=== PATIENT | male | born 1965 | race Hispanic/Latino ===

== ENCOUNTER 2018-04-04 07:32 | Emergency (ER) | payer SELFPAY ==
[~2018-04-04] VITALS: Ht 162.6 cm; Wt 75.3 kg
[~2018-04-04 07:32] MED LIST: AMLODIPINE BESYL5 MG PO; GLIMEPIRIDE2 MG PO; LEVAQUIN500 MG PO; LISINOPRIL-HCT1 EAC1; LISINOPRIL10 MG PO; TYLENOL WITH C1 EACH PO; ULTRAM50 MG PO; ZESTORETIC 20-1 EAC1 PO
[2018-04-04] MEDS ORDERED: SODIUM CHLORIDE 0.9% 1000ML 1,000 ML IV STA (07:41)
[2018-04-04] MEDS ORDERED: PANTOPRAZOLE 40 MG 10ML VIAL IV STA (07:41)
[2018-04-04] MEDS ORDERED: ONDANSETRON HCL INJ 2MG/ML 2ML 2 MG/ML VIAL IV STA (07:41)
[2018-04-04] MEDS ORDERED: MORPHINE SULFATE INJ 4 MG/ML INJ 1ML IV ONE (07:45)
[2018-04-04] MEDS ORDERED: DIATRIZOATE MEGL/DIATRIZOA SOD 30 ML BTL PO ONE (07:50)
--- NOTE | 2018-04-04 07:57 | NUR ---
xray at bedside for cxr.
[2018-04-04] MEDS ORDERED: PIPER-TAZ 3.375 GM 50 ML IV SCH (08:00)
[2018-04-04] MEDS ORDERED: METRONIDAZOLE 500MG/NS 100ML 100 ML IV SCH (08:00)
[2018-04-04 08:02] LABS: BASOPHILS % 0.4 % (0.0-1.0); EOSINOPHILS # (AUTO) 0.1 (0.0-0.4); EOSINOPHILS % 1.5 % (0.0-6.0); HEMATOCRIT 45.6 % (38.2-49.6); HEMOGLOBIN 15.7 g/dL (14.0-18.0); LYMPHOCYTES # (AUTO) 1.2 (1.0-3.2); LYMPHOCYTES % 14.3 % (18.0-39.1); MEAN CORPUSCULAR HEMOGLOBIN 30.1 pg (28-32); MEAN CORPUSCULAR HGB CONC 34.4 g/dL (31-35); MEAN CORPUSCULAR VOLUME 87.4 fL (81-99); MONOCYTES # (AUTO) 0.6 (0.2-0.8); MONOCYTES % 7.7 % (4.4-11.3); NEUTROPHILS # (AUTO) 6.1 (2.1-6.9); NEUTROPHILS % 75.9 % (38.7-80.0); PLATELET COUNT 218 x10e3/uL (140-360); RED BLOOD COUNT 5.22 x10e6/uL (4.3-5.7); RED CELL DISTRIBUTION WIDTH 11.7 % (11.7-14.4)
[2018-04-04 08:07] LABS: CLARITY,URINE CLEAR (CLEAR); COLOR,URINE YELLOW (YELLOW)
[2018-04-04 08:08] LABS: BILIRUBIN,URINE NEGATIVE (NEGATIVE); KETONES,URINE NEGATIVE (NEGATIVE); LEUKOCYTE ESTERASE ,URINE NEGATIVE (NEGATIVE); NITRITE,URINE NEGATIVE (NEGATIVE); PROTEIN,URINE DIPSTICK NEGATIVE (NEGATIVE); URINE UROBILINOGEN 0.2 mg/dL (0.2 - 1)
[2018-04-04 08:13] LABS: BACTERIA,URINE FEW /HPF; EPITHELIAL CELLS,URINE FEW /LPF; RBC,URINE 0-5 /HPF (0-5); WBC,URINE (MAN) 0-5 /HPF (0-5)
[2018-04-04 08:16] LABS: INR 0.95; PROTHROMBIN TIME 13.5 seconds (11.9-14.5)
[2018-04-04 08:17] LABS: PARTIAL THROMBOPLASTIN TIME 30.1 seconds (23.8-35.5)
[2018-04-04 08:21] LABS: ALANINE AMINOTRANSFERASE 36 IU/L (0-55); ALBUMIN/GLOBULIN RATIO 1.4 (0.8-2.0); ALKALINE PHOSPHATASE 70 IU/L (40-150); ANION GAP 14.5 mmol/L (8-16); BLOOD UREA NITROGEN 12 mg/dL (7-26); BUN/CREATININE RATIO 12 (6-25); CALCIUM 9.6 mg/dL (8.4-10.2); CARBON DIOXIDE 30 mmol/L (22-29); CHLORIDE 99 mmol/L (98-107); CREATINE KINASE 253 IU/L (30-200); CREATININE, SERUM 0.97 mg/dL (0.72-1.25); EST GLOMERULAR FILTRATION RATE > 60 ML/MIN (60-); GLUCOSE 144 mg/dL (74-118); LIPASE 57 U/L (8-78); MAGNESIUM 2.2 MG/DL (1.3-2.1); POTASSIUM 3.5 mmol/L (3.5-5.1); SODIUM 140 mmol/L (136-145)
--- NOTE | 2018-04-04 10:44 | NUR ---
PATIENT LAYING IN BED WITH EYES CLOSED. SKIN WARM AND DRY. RESP EVEN AND UNLABORED. NO SIGNS OF ACUTE DISTRESS NOTED AT THIS TIME.
--- NOTE | 2018-04-04 10:59 | Diagnostic Imaging Report ---
EXAM: CT Abdomen and Pelvis WITH contrast INDICATION: Pain COMPARISON: None. TECHNIQUE: Abdomen and Pelvis was scanned utilizing a multidetector helical scanner after administration of IV contrast. Coronal and sagittal reformations were obtained. IV CONTRAST: COMPLICATIONS: None RADIATION DOSE: Total DLP:384 mGy*cm Estimated effective dose: (DLP x 0.015 x size factor) mSv CTDIvol has been reviewed. It is below the limits set by the Radiation Protocol Committee (RPC). Appropriate CT dose reduction techniques were utilized. FINDINGS: Abdomen: Lung Bases: No acute findings. Solid Organs: Mild hepatic steatosis. Liver, adrenals, kidneys, spleen, and pancreas unremarkable. Upper GI Tract: Gastric decompression limits evaluation. No small bowel obstructive changes. Vascularity: No aortic aneurysm. Lymph Nodes: Scattered small mesenteric lymph nodes, not enlarged by size criteria. Other: None. Pelvis: Bladder: Decompressed, precluding adequate evaluation. Other: None. Colon: Postsurgical changes in the rectum likely LAR. Correlation with history. Trace surrounding stranding. No distinct pelvic adenopathy. Bones: No acute findings. Presumed bone island left ischium coronal image 64. IMPRESSION: 1. Postsurgical changes in the rectum, presumably LAR. Minimal surrounding stranding could represent an infectious/inflammatory colitis. Gastroenterology follow-up for consideration of direct visualization recommended. 2. Mild hepatic steatosis. 3. Mild thickening distal esophageal wall commonly seen in the setting of reflux. Signed by: Dr. Brayan Starkey MD on 04/04/2018 10:56 AM
--- NOTE | 2018-04-04 10:59 | Diagnostic Imaging Report ---
EXAM: XR CHEST 1 VIEW DATE: 04/04/2018 7:41 AM INDICATION: Nausea vomiting COMPARISON: None FINDINGS: Lines and Tubes: None Heart and Mediastinum: No acute cardiomediastinal findings. Lungs and Pleura: No significant pleural effusion, pneumothorax, or focal consolidation. Bones and Soft Tissues: No acute findings. IMPRESSION: 1. No acute cardiopulmonary findings. Signed by: Dr. Brayan Starkey MD on 04/04/2018 10:56 AM
[2018-04-04] MEDS ORDERED: SODIUM CHLORIDE 0.9% 50ML 50 ML ONE (11:39)
[2018-04-04] MEDS ORDERED: IOPAMIDOL 370 MG/ML 200 ML INFUS..BTL INJ ONE (11:39)
== END 2018-04-04 11:30 | disposition home or self-care (01) ==
LOC: ER 07:32
DX: R10.32 Left lower quadrant pain (principal); R10.12 Left upper quadrant pain; R11.2 Nausea with vomiting, unspecified; R19.7 Diarrhea, unspecified; I10 Essential (primary) hypertension; E11.9 Type 2 diabetes mellitus without complications; E78.5 Hyperlipidemia, unspecified; Z98.0 Intestinal bypass and anastomosis status
CPT/HCPCS: 36415; 71045; 74177; 80053; 81001; 82550; 82553; 83605; 83690; 83735; 84484; 85025; 85610; 85730; 87086; 93005; 99284; J2270; J2405; J2543; J7030; Q9967

== ENCOUNTER 2019-01-29 14:51 | Emergency (ER) | payer BC ==
[~2019-01-29] VITALS: Ht 162.6 cm; Wt 75.3 kg
--- OUTSIDE RECORDS SUMMARY | 2019-01-29 14:56 | XMS REPORT ---
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 Allergies, Adverse Reactions, Alerts Allergy Name Allergy Type Status Severity Reaction(s) Onset Date Inactive Date Treating Clinician Comments No Known Allergies DA Active U 2018-03-30 00:00:00 Medications This patient has no known medications. Results Test Description Test Time Test Comments Text Results Atomic Results Result Comments CHEST SINGLE (PORTABLE) 2018-04-04 10:56:[address] [address] Patient Name: VEE HERZOG MR #: [id number] : 1965 Age/Sex: 52/M Req #: [id number] Adm Physician: Ordered by: MONAE LOVE MD Report #: [id number] Location: ER Room/Bed: Procedure: [id number] DX/CHEST SINGLE (PORTABLE) Exam Date: 04/04/18 Exam Time: 0800 REPORT STATUS: Signed EXAM: XR CHEST 1 VIEW DATE: 04/04/2018 7:41 AM INDICATION: Nausea vomiting COMPARISON: None FINDINGS: Lines and Tubes: None Heart and Mediastinum: No acute cardiomediastinal findings. Lungs and Pleura: No significant pleural effusion, pneumothorax, or focal consolidation. Bones and Soft Tissues: No acute findings. IMPRESSION: 1. No acute cardiopulmonary findings. Signed by: Dr. Brayan Starkey MD on 04/04/2018 10:56 AM Dictated By: BRAYAN STARKEY MD 105 Transcribed By: REID on 04/04/18 105 COPY TO: MONAE LOVE MD CT ABDOMEN/PELVIS W 2018-04-04 10:53:00 [place] [address] Patient Name: VEE HERZOG MR #: [id number] : 1965 Age/Sex: 52/M Req #: [id number] Adm Physician: Ordered by: MONAE LOVE MD Report #: [id number] Location: ER Room/Bed: Procedure: [id number] CT/CT ABDOMEN/PELVIS W Exam Date: 04/04/18 Exam Time: 09 REPORT STATUS: Signed EXAM: CT Abdomen and Pelvis WITH contrast HARVEY CATION: Pain COMPARISON: None. TECHNIQUE: Abdomen and Pelvis was scanned utilizing a multidetector helical scanner after administration of IV contrast. Coronal and sagittal reformations were obtained. IV CONTRAST: COMPLICATIONS: None RADIATION DOSE: Total DLP:384 mGy*cm Estimated effective dose: (DLP x 0.015 x size factor) mSv CTDIvol has been reviewed. It is below the limits set by the Radiation Protocol Committee (RPC). Appropriate CT dose reduction techniques were utilized. FINDINGS: Abdomen: Lung Bases: No acute findings. Solid Organs: Mild hepatic steatosis. Liver, adrenals, kidneys, spleen, and pancreas unremarkable. Upper GI Tract: Gastric decompression limits evaluation. No small bowel obstructive changes. Vascularity: No aortic aneurysm. Lymph Nodes: Scattered small mesenteric lymph nodes, not enlarged by size criteria. Other: None. Pelvis: Bladder: Decompressed, precluding adequate evaluation. Other: None. Colon: Postsurgical changes in the rectum likely LAR. Correlation with history. Trace surrounding stranding. No distinct pelvic adenopathy. Bones: No acute findings. Presumed bone island left ischium coronal image 64. IMPRESSION: 1. Postsurgical changes in the rectum, presumably LAR. Minimal surrounding stranding could represent an infectious/inflammatory colitis. Gastroenterology follow-up for consideration of direct visualization recommended. 2. Mild hepatic steatosis. 3. Mild thickening distal esophageal wall commonly seen in the setting of reflux. Signed by: Dr. Brayan Starkey MD on 04/04/2018 10:56 AM Dictated By: BRAYAN STARKEY MD [id number] Transcribed By: REID on 04/04/18 1056 COPY TO: MONAE LOVE MD URINALYSIS COMPLETE 2018-03-30 18:36:00 UA COLOR (test code=COLU) LIGHT YELLOW YELLOW UA APPEARANCE (test code=APPU) CLEAR CLEAR UA GLUCOSE DIPSTICK (test code=DGLUU) 150 (1+) mg/dL NEGATIVE UA BILIRUBIN DIPSTICK (test code=BILU) NEGATIVE mg/dL NEGATIVE UA KETONE DIPSTICK (test code=KETU) Negative mg/dL NEGATIVE UA SPECIFIC GRAVITY (test code=SGU) 1.009 1.001-1.035 UA BLOOD DIPSTICK (test code=MERCEDES) 1+ (Small) NEGATIVE UA PH DIPSTICK (test code=SINDY) 6.0 5.0-8.0 UA PROTEIN DIPSTICK (test code=PROU) 30 (1+) mg/dL NEGATIVE UA UROBILINIOGEN DIPSTICK (test code=URO) mg/dL 0.0-0.2 UA NITRITE DIPSTICK (test code=SANIYA) NEGATIVE NEGATIVE UA LEUKOCYTE ESTERASE W REFLEX (test code=LEUUR) NEGATIVE NEGATIVE UA WBC (test code=WBCU) 0-5 #/HPF 0-5 UA RBC (test code=RBCU) 0-2 #/HPF 0-5 UA EPITHELIAL CELLS (test code=EPIU) FEW per HPF FEW Urine Source? Clean CatchURINALYSIS [id number] 18:36:00* Test Item Value Reference Range Comments UA COLOR (test code=COLU) LIGHT YELLOW YELLOW UA APPEARANCE (test code=APPU) CLEAR CLEAR UA GLUCOSE DIPSTICK (test code=DGLUU) 150 (1+) mg/dL NEGATIVE UA BILIRUBIN DIPSTICK (test code=BILU) NEGATIVE mg/dL NEGATIVE UA KETONE DIPSTICK (test code=KETU) Negative mg/dL NEGATIVE UA SPECIFIC GRAVITY (test code=SGU) 1.009 1.001-1.035 UA BLOOD DIPSTICK (test code=MERCEDES) 1+ (Small) NEGATIVE UA PH DIPSTICK (test code=SINDY) 6.0 5.0-8.0 UA PROTEIN DIPSTICK (test code=PROU) 30 (1+) mg/dL NEGATIVE UA UROBILINIOGEN DIPSTICK (test code=URO) 1.0-2.0 (1+) mg/dL NEGATIVE UA NITRITE DIPSTICK (test code=SANIYA) NEGATIVE NEGATIVE UA LEUKOCYTE ESTERASE W REFLEX (test code=LEUUR) NEGATIVE NEGATIVE UA WBC (test code=WBCU) 0-5 #/HPF 0-5 UA RBC (test code=RBCU) 0-2 #/HPF 0-5 UA EPITHELIAL CELLS (test code=EPIU) FEW per HPF FEW UA BACTERIA (test code=BACU) FEW #/HPF NONE UA HYALINE CAST (test code=HYALU) 6-10 #/LPF 0-5 UA MUCUS (test code=MUCU) FEW #/LPF FEW Urine Source? Clean CatchURINALYSIS [id number] 18:35:00* Test Item Value Reference Range Comments UA COLOR (test code=COLU) LIGHT YELLOW YELLOW UA APPEARANCE (test code=APPU) CLEAR CLEAR UA GLUCOSE DIPSTICK (test code=DGLUU) 150 (1+) mg/dL NEGATIVE UA BILIRUBIN DIPSTICK (test code=BILU) NEGATIVE mg/dL NEGATIVE UA KETONE DIPSTICK (test code=KETU) Negative mg/dL NEGATIVE UA SPECIFIC GRAVITY (test code=SGU) 1.009 1.001-1.035 UA BLOOD DIPSTICK (test code=MERCEDES) 1+ (Small) NEGATIVE UA PH DIPSTICK (test code=SINDY) 6.0 5.0-8.0 UA PROTEIN DIPSTICK (test code=PROU) 30 (1+) mg/dL NEGATIVE UA UROBILINIOGEN DIPSTICK (test code=URO) mg/dL 0.0-0.2 UA NITRITE DIPSTICK (test code=SANIYA) NEGATIVE NEGATIVE UA LEUKOCYTE ESTERASE W REFLEX (test code=LEUUR) NEGATIVE NEGATIVE UA WBC (test code=WBCU) per HPF 0-5 Urine Source? Clean CatchBASIC METABOLIC [id number] 17:56:00* Test Item Value Reference Range Comments SODIUM (test code=NA) 132 mmol/L 136-145 POTASSIUM (test code=K) 3.0 mmol/L 3.5-5.1 CHLORIDE (test code=CL) 95.0 mmol/L 98-107 CARBON DIOXIDE (test code=CO2) 26.0 mmol/L 21-32 ANION GAP (test code=GAP) 14.0 10-20 GLUCOSE (test code=GLU) 214 mg/dL 74-106 BLOOD UREA NITROGEN (test code=BUN) 9 mg/dL 7-18 GLOMERULAR FILTRATION RATE (test code=GFR) > 60 mL/min >=60 Estimated GFR by using Modified MDRD formula.Chronic kidney disease is defined as either kidney damageor GFR <60 mL/min/1.73 m2 for >3 months. CREATININE (test code=CREAT) 0.90 mg/dL 0.7-1.3 BUN/CREATININE RATIO (test code=BUN/CREA) 10.1 10-20 CALCIUM (test code=CA) 8.7 mg/dL 8.5-10.1 HEPATIC FUNCTION [id number] 17:56:00* Test Item Value Reference Range Comments TOTAL PROTEIN (test code=PROT) 7.9 gram/dL 6.4-8.2 ALBUMIN (test code=ALB) 3.7 g/dL 3.4-5.0 GLOBULIN (test code=GLOB) 4.2 gram/dL 2.7-4.2 ALBUMIN/GLOBULIN RATIO (test code=A/G) 0.9 0.75-1.50 BILIRUBIN TOTAL (test code=BILT) 1.20 mg/dL 0.0-1.0 BILIRUBIN DIRECT (test code=BILD) 0.20 mg/dL 0.0-0.20 SGOT/AST (test code=AST) 21 IUnit/L 15-37 SGPT/ALT (test code=ALT) 39 IUnit/L 12-78 ALKALINE PHOSPHATASE TOTAL (test code=ALKP) 87 IUnit/L 45-117 Note change in reference range due to change in reagent. [id number] 17:56:00* Test Item Value Reference Range Comments LIPASE (test code=LIP) 342 U/L 73.0-393.0 [id number] 17:56:00* Test Item Value Reference Range Comments TROPONIN-I (test code=TROPI) <0.015 ng/mL 0-0.045 BASIC METABOLIC [id number] 17:44:00* Test Item Value Reference Range Comments SODIUM (test code=NA) 132 mmol/L 136-145 POTASSIUM (test code=K) 3.0 mmol/L 3.5-5.1 CHLORIDE (test code=CL) 95.0 mmol/L 98-107 CARBON DIOXIDE (test code=CO2) mmol/L 21-32 ANION GAP (test code=GAP) 10-20 GLUCOSE (test code=GLU) mg/dL 74-106 BLOOD UREA NITROGEN (test code=BUN) mg/dL 7-18 GLOMERULAR FILTRATION RATE (test code=GFR) mL/min >=60 CREATININE (test code=CREAT) mg/dL 0.7-1.3 BUN/CREATININE RATIO (test code=BUN/CREA) 10-20 CALCIUM (test code=CA) mg/dL 8.5-10.1 HEPATIC FUNCTION [id number] 17:44:00* Test Item Value Reference Range Comments TOTAL PROTEIN (test code=PROT) gram/dL 6.4-8.2 ALBUMIN (test code=ALB) g/dL 3.4-5.0 GLOBULIN (test code=GLOB) gram/dL 2.7-4.2 ALBUMIN/GLOBULIN RATIO (test code=A/G) 0.75-1.50 BILIRUBIN TOTAL (test code=BILT) mg/dL 0.0-1.0 BILIRUBIN DIRECT (test code=BILD) mg/dL 0.0-0.20 SGOT/AST (test code=AST) IUnit/L 15-37 SGPT/ALT (test code=ALT) IUnit/L 12-78 ALKALINE PHOSPHATASE TOTAL (test code=ALKP) IUnit/L 45-117 [id number] 17:44:00* Test Item Value Reference Range Comments LIPASE (test code=LIP) U/L 73.0-393.0 [id number] 17:44:00* Test Item Value Reference Range Comments TROPONIN-I (test code=TROPI) ng/mL 0-0.045 CBC W/O [id number] 17:39:00* Test Item Value Reference Range Comments WHITE BLOOD CELL (test code=WBC) 11.4 K/mm3 4.5-12.5 RED BLOOD CELL (test code=RBC) 5.38 mill/mm3 4.0-5.8 HEMOGLOBIN (test code=HGB) 16.0 gram/dL 13.0-17.5 HEMATOCRIT (test code=HCT) 47.0 % 42.0-52.0 MEAN CELL VOLUME (test code=MCV) 87.4 fL 80-98 MEAN CELL HGB (test code=MCH) 29.7 picogram 27.0-33.0 MEAN CELL HGB CONCETRATION (test code=MCHC) 34.0 gram/dL 33.0-36.0 RED CELL DISTRIBUTION WIDTH (test code=RDW) 11.4 % 11.6-16.2 PLATELET COUNT (test code=PLT) 266 K/mm3 150-450 MEAN PLATELET VOLUME (test code=MPV) 10.2 fL 6.7-11.0
[2019-01-29 16:20] LABS: BASOPHILS % 0.3 % (0.0-1.0); EOSINOPHILS # (AUTO) 0.1 (0.0-0.4); EOSINOPHILS % 0.6 % (0.0-6.0); HEMATOCRIT 41.7 % (38.2-49.6); LYMPHOCYTES # (AUTO) 1.6 (1.0-3.2); LYMPHOCYTES % 15.8 % (18.0-39.1); MEAN CORPUSCULAR HEMOGLOBIN 30.8 pg (28-32); MEAN CORPUSCULAR VOLUME 85.6 fL (81-99); MONOCYTES # (AUTO) 0.7 (0.2-0.8); MONOCYTES % 7.2 % (4.4-11.3); NEUTROPHILS # (AUTO) 7.5 (2.1-6.9); NEUTROPHILS % 75.8 % (38.7-80.0); PLATELET COUNT 200 x10e3/uL (140-360); RED BLOOD COUNT 4.87 x10e6/uL (4.3-5.7); RED CELL DISTRIBUTION WIDTH 11.9 % (11.7-14.4)
[2019-01-29 16:21] LABS: BILIRUBIN,URINE NEGATIVE (NEGATIVE); CLARITY,URINE SL CLOUDY (CLEAR); COLOR,URINE YELLOW (YELLOW); KETONES,URINE NEGATIVE (NEGATIVE); LEUKOCYTE ESTERASE ,URINE NEGATIVE (NEGATIVE); NITRITE,URINE NEGATIVE (NEGATIVE); PROTEIN,URINE DIPSTICK 1+ (NEGATIVE); URINE UROBILINOGEN 0.2 mg/dL (0.2 - 1)
[2019-01-29 16:36] LABS: RBC,URINE 0-5 /HPF (0-5)
[2019-01-29 16:41] LABS: ALANINE AMINOTRANSFERASE 33 IU/L (0-55); ALBUMIN 4.1 g/dL (3.5-5.0); ALBUMIN/GLOBULIN RATIO 1.2 (0.8-2.0); ALKALINE PHOSPHATASE 65 IU/L (40-150); ANION GAP 13.9 mmol/L (8-16); BLOOD UREA NITROGEN 20 mg/dL (7-26); BUN/CREATININE RATIO 19 (6-25); CALCIUM 9.4 mg/dL (8.4-10.2); CARBON DIOXIDE 32 mmol/L (22-29); CHLORIDE 96 mmol/L (98-107); CREATININE, SERUM 1.08 mg/dL (0.72-1.25); EST GLOMERULAR FILTRATION RATE > 60 ML/MIN (60-); GLUCOSE 69 mg/dL (74-118); SODIUM 139 mmol/L (136-145)
[2019-01-29 16:44] LABS: POTASSIUM 2.9 mmol/L (3.5-5.1)
[2019-01-29] MEDS ORDERED: ONDANSETRON HCL INJ 2MG/ML 2ML 2 MG/ML VIAL IV ONE (16:55)
[2019-01-29] MEDS ORDERED: FAMOTIDINE 20 MG/2 ML VIAL IV ONE (16:55)
[2019-01-29] MEDS ORDERED: POTASSIUM CHLORIDE 20 MEQ TAB CR PO ONE (16:55)
[2019-01-29] MEDS ORDERED: KCL 20MEQ/.9 SOD CHL 1,000 ML IV ONE (17:00)
[2019-01-29] MEDS ORDERED: METOCLOPRAMIDE HCL 10 MG/2ML VIAL IV ONE (18:15)
--- NOTE | 2019-01-29 19:52 | Diagnostic Imaging Report ---
EXAM: ABDOMEN 2 VIEW DATE: 01/29/2019 4:55 PM INDICATION: ^Abdominal pain, N/V/D ^[id number] ^1710 COMPARISON: None FINDINGS: 3 views of the abdomen were obtained supine and upright. There is a normal distribution of air in the small and large bowel. No evidence for pneumoperitoneum. No abnormal fluid levels. No specific abnormal soft tissue calcifications. Lung bases are clear. No acute bony abnormality. Degenerative changes are seen in the lumbar spine. IMPRESSION: No bowel dilatation or evidence for bowel obstruction. No pneumoperitoneum. Signed by: Dr. Hugo Alegria M.D. on 01/29/2019 7:49 PM
[2019-01-29] MEDS ORDERED: ZANTAC 7575 MG PO (20:35)
[2019-01-29 21:09] VITALS: BP 132/70
[2019-01-29] MEDS ORDERED: ONDANSETRON HCL 4 MG ORAL DISINTEGRATING TAB PO ONE (21:15)
[2019-01-29] MEDS ORDERED: ONDANSETRON HCL 4 MG ORAL DISINTEGRATING TAB ONE (21:22)
== END 2019-01-29 21:10 | disposition home or self-care (01) ==
LOC: ER 14:51
DX: R10.84 Generalized abdominal pain (principal); R11.2 Nausea with vomiting, unspecified; K52.9 Noninfective gastroenteritis and colitis, unspecified; K56.7 Ileus, unspecified; E87.6 Hypokalemia
CPT/HCPCS: 36415; 74019; 80053; 81001; 85025; 93005; 99284; J2405; J2765; Q0162

== ENCOUNTER 2019-07-12 18:21 | Observation (INO) | payer BC, OTHER ==
[~2019-07-12] VITALS: Ht 162.6 cm; Wt 78.6 kg
[~2019-07-12 18:21] MED LIST changes: +ZANTAC 7575 MG PO
--- NOTE | 2019-07-12 18:51 | Diagnostic Imaging Report ---
EXAMINATION: Head CT HISTORY: Alteration of consciousness, left-sided weakness, possible stroke COMPARISON: None. TECHNIQUE: Helical axial images of the head were obtained. Reformatted coronal and sagittal images from the axial data. Dose modulation, iterative reconstruction, and/or weight based adjustment of the mA/kV was utilized to reduce the radiation dose to as low as reasonably achievable. Image quality: Motion/streaking artifact limits the evaluation of the skull base and posterior cranial fossa. FINDINGS: Parenchyma: 1. Few scattered white matter hypodensities, most likely nonspecific chronic microvascular ischemic changes. Small age indeterminate, likely chronic lacunar infarct in the left parietal zhou radiata, right anterosuperior putamen (x2) and left medial thalamus. 2. No mass or hemorrhage. No CT evidence of acute territorial vascular insult. Extra-axial spaces:No abnormal density. No extra-axial fluid collections Brain volume: Normal for age. Ventricles: No hydrocephalus or displacement. Arteries: No density suggestive of thrombus. Dural sinuses: No abnormal density. Foramen magnum: No mass, Chiari malformation, or basilar invagination. Sella: No obvious mass. Paranasal/mastoid sinuses: Imaged portions unremarkable. Skull/Scalp: No lytic or blastic lesions. No fractures. IMPRESSION: 1. No acute intracranial hemorrhage or CT evidence of acute territorial cortical infarct. 2. Age indeterminate likely chronic small lacunar infarcts as detailed above. 3. Mild white matter chronic microvascular ischemic changes. Signed by: Dr. Justine Rodas M.D. on 07/12/2019 6:47 PM
[2019-07-12 18:54] LABS: BASOPHILS % 0.5 % (0.0-1.0); EOSINOPHILS # (AUTO) 0.1 (0.0-0.4); EOSINOPHILS % 1.5 % (0.0-6.0); HEMATOCRIT 39.2 % (38.2-49.6); HEMOGLOBIN 14.2 g/dL (14.0-18.0); LYMPHOCYTES # (AUTO) 1.5 (1.0-3.2); LYMPHOCYTES % 18.2 % (18.0-39.1); MEAN CORPUSCULAR HEMOGLOBIN 31.1 pg (28-32); MEAN CORPUSCULAR HGB CONC 36.2 g/dL (31-35); MONOCYTES # (AUTO) 0.6 (0.2-0.8); MONOCYTES % 6.8 % (4.4-11.3); NEUTROPHILS # (AUTO) 5.9 (2.1-6.9); NEUTROPHILS % 72.5 % (38.7-80.0); PLATELET COUNT 195 x10e3/uL (140-360); RED BLOOD COUNT 4.56 x10e6/uL (4.3-5.7); RED CELL DISTRIBUTION WIDTH 11.8 % (11.7-14.4)
[2019-07-12 19:02] LABS: INR 0.91; PARTIAL THROMBOPLASTIN TIME 27.9 seconds (23.8-35.5); PROTHROMBIN TIME 12.8 seconds (11.9-14.5)
[2019-07-12 19:09] LABS: ALANINE AMINOTRANSFERASE 29 IU/L (0-55); ALBUMIN 3.7 g/dL (3.5-5.0); ALBUMIN/GLOBULIN RATIO 1.2 (0.8-2.0); ALKALINE PHOSPHATASE 78 IU/L (40-150); ANION GAP 14.2 mmol/L (8-16); BLOOD UREA NITROGEN 23 mg/dL (7-26); BUN/CREATININE RATIO 22 (6-25); CALCIUM 9.7 mg/dL (8.4-10.2); CARBON DIOXIDE 26 mmol/L (22-29); CHLORIDE 103 mmol/L (98-107); CREATINE KINASE 357 IU/L (30-200); CREATININE, SERUM 1.03 mg/dL (0.72-1.25); EST GLOMERULAR FILTRATION RATE > 60 ML/MIN (60-); GLUCOSE 222 mg/dL (74-118); POTASSIUM 3.2 mmol/L (3.5-5.1); SODIUM 140 mmol/L (136-145)
[2019-07-12] MEDS ORDERED: ASPIRIN 81 MG CHEW TAB PO ONE ×2 (19:15→19:30)
[2019-07-12] MEDS ORDERED: ONDANSETRON HCL INJ 2MG/ML 2ML 2 MG/ML VIAL IV PRN (19:30)
--- NOTE | 2019-07-12 19:32 | Diagnostic Imaging Report ---
EXAMINATION: CHEST SINGLE (PORTABLE) COMPARISON: None INDICATION: Stroke like symptoms ^Y ^ERMD ORDER ^[id number] ^0 ^Y DISCUSSION: Frontal view of the chest obtained at 1917 hours. HEART AND MEDIASTINUM: The cardiomediastinal silhouette is unremarkable. LINES: None. LUNGS: The lungs are well inflated and clear. No pneumonia or pulmonary edema. PLEURA: No pleural effusion or pneumothorax. BONES AND SOFT TISSUES: No focal osseous lesion. The soft tissues are normal. IMPRESSION: No acute cardiopulmonary disease. Signed by: Dr. Irina Douglas MD on 07/12/2019 7:29 PM
[2019-07-12 19:40] LABS: CLARITY,URINE CLEAR (CLEAR); COLOR,URINE YELLOW (YELLOW); LEUKOCYTE ESTERASE ,URINE NEGATIVE (NEGATIVE); NITRITE,URINE NEGATIVE (NEGATIVE); PROTEIN,URINE DIPSTICK 1+ (NEGATIVE)
[2019-07-12 19:41] LABS: BILIRUBIN,URINE NEGATIVE (NEGATIVE); KETONES,URINE NEGATIVE (NEGATIVE); URINE UROBILINOGEN 1 mg/dL (0.2 - 1)
[2019-07-12] MEDS ORDERED: DEXTROSE 50% SYRINGE 50 ML IV PRN (19:45)
[2019-07-12 19:54] LABS: BACTERIA,URINE RARE /HPF; RBC,URINE 0-5 /HPF (0-5); WBC,URINE (MAN) 0-5 /HPF (0-5)
[2019-07-12 19:55] LABS: EPITHELIAL CELLS,URINE FEW /LPF
[2019-07-12 20:00] VITALS: BP 141/84
[2019-07-12] MEDS: INSULIN LISPRO 100 UNIT/1 ML 3ML VIAL SQ SCH (21:00)
--- NOTE | 2019-07-12 21:30 | NUR ---
PATIENT WAS BROUGHT FROM ER IN A WHEEL CHAIR.ASSESSMENT DONE.AAOX4.NO RESP.DISTRESS.NO PAIN VOICED.ORIENTED TO THE UNIT.BED LOCKED AND IN LOWEST POSITION.PHONE AND CALL LIGHT WITHIN REACH.INSTRUCTED TO CALL FOR ASSISTANCE NEEDED. PER THE REPORT FROM ER CAROTID DOPPLER & MRI TO BE DONE IN AM TOMORROW.STABLE CONDITION.
[2019-07-12 21:45] VITALS: BP 141/84
[2019-07-12 22:00] VITALS: BP 141/84
[2019-07-12] MEDS: SODIUM CHLORIDE 0.9% 1000ML 1,000 ML IV SCH (22:31)
[2019-07-13] VITALS (9 sets, daily range): BP systolic 133–164; BP diastolic 75–95
--- NOTE | 2019-07-13 03:32 | NUR ---
COVID-19 TEST DONE.RESULT PENDING.
[2019-07-13 05:53] LABS: BASOPHILS % 0.4 % (0.0-1.0); EOSINOPHILS # (AUTO) 0.2 (0.0-0.4); EOSINOPHILS % 2.5 % (0.0-6.0); HEMATOCRIT 40.4 % (38.2-49.6); HEMOGLOBIN 14.1 g/dL (14.0-18.0); LYMPHOCYTES # (AUTO) 1.6 (1.0-3.2); LYMPHOCYTES % 20.2 % (18.0-39.1); MEAN CORPUSCULAR HEMOGLOBIN 30.5 pg (28-32); MEAN CORPUSCULAR HGB CONC 34.9 g/dL (31-35); MEAN CORPUSCULAR VOLUME 87.4 fL (81-99); MONOCYTES # (AUTO) 0.6 (0.2-0.8); MONOCYTES % 7.5 % (4.4-11.3); NEUTROPHILS # (AUTO) 5.6 (2.1-6.9); NEUTROPHILS % 68.9 % (38.7-80.0); PLATELET COUNT 186 x10e3/uL (140-360); RED BLOOD COUNT 4.62 x10e6/uL (4.3-5.7)
[2019-07-13 06:22] LABS: CREATINE KINASE MB 8.3 ng/mL (0-5.0)
[2019-07-13 06:38] LABS: ANION GAP 10.8 mmol/L (8-16); BLOOD UREA NITROGEN 15 mg/dL (7-26); BUN/CREATININE RATIO 17 (6-25); CALCIUM 8.9 mg/dL (8.4-10.2); CARBON DIOXIDE 28 mmol/L (22-29); CHLORIDE 104 mmol/L (98-107); CREATININE, SERUM 0.89 mg/dL (0.72-1.25); EST GLOMERULAR FILTRATION RATE > 60 ML/MIN (60-); GLUCOSE 158 mg/dL (74-118); SODIUM 140 mmol/L (136-145)
--- NOTE | 2019-07-13 06:50 | NUR ---
LAB CRITICAL VALUE NOTIFIED TO
[2019-07-13 06:58] LABS: POTASSIUM 2.8 mmol/L (3.5-5.1)
--- NOTE | 2019-07-13 07:00 | NUR ---
Received bedside shift report from night nurse. Patient awake, denies pain at this time. Reoriented to call light and surroundings. No visible signs of distress noted at this time. Bed in low position, bed alarm on zone 2, call light within reach. Addendum: 07/13/19 at 1019 by SREEKANTH HIGGNIS RN ENTERED IN ERROR
--- NOTE | 2019-07-13 07:00 | NUR ---
Received bedside shift report from night nurse. Patient awake at this time, denies pain. No visible signs of distress noted. Call light within reach.
--- NOTE | 2019-07-13 07:15 | NUR ---
Bed side shift report given to oncoming Rn stable condition.received new orders.
[2019-07-13] MEDS: INSULIN LISPRO 100 UNIT/1 ML 3ML VIAL SQ SCH ×4 (07:30→20:34)
[2019-07-13] MEDS ORDERED: POTASSIUM CHLORIDE 20 MEQ TAB CR PO ONE ×2 (07:58→10:00)
[2019-07-13] MEDS ORDERED: ASPIRIN 81 MG ENTERIC COATED PO SCH (09:00)
[2019-07-13] MEDS: SODIUM CHLORIDE 0.9% 1000ML 1,000 ML IV SCH (09:46)
--- NOTE | 2019-07-13 09:47 | Diagnostic Imaging Report ---
EXAM: CHEST SINGLE (PORTABLE) DATE: 07/13/2019 5:20 AM INDICATION: Weakness COMPARISON: 07/12/2019 FINDINGS: The trachea is midline. The lungs are symmetrically expanded without evidence for large focal consolidation, pneumothorax, or significant pleural effusion. The cardiomediastinal silhouette is stable in appearance. No acute osseous abnormality is identified. The surrounding soft tissues are unremarkable. IMPRESSION: No acute cardiopulmonary process identified. Signed by: Dr. Rodger Duarte MD on 07/13/2019 9:44 AM
--- NOTE | 2019-07-13 11:54 | NUR ---
H&P 07/13/2019 Chief complaint: Weakness and impaired speech HPI: Mr. Ferraro is a 53-year-old gentleman with a past medical history of hypertension, diabetes mellitus type 2, hyperlipidemia, diverticulitis status post colostomy who presented to the emergency department complaining of 1 day of left-sided weakness, numbness, and slurred speech that resolved. The patient is a still able to walk with help. The patient denies head trauma, headache, dizziness, altered mental status, seizure, loss of consciousness, impaired swallowing, fever, chills, shortness of breath, palpitations, PND, nausea, vomiting, abdominal pain, diarrhea, melena, dysuria, frequency. Review of system: Constitutional: No fever, no chills. HEENT: Denies headache, no ear pain, no nosebleed, no sore throat. Cardiovascular: Denies chest pain, PND, swelling of the legs, palpitations or blackout spells. Respiratory: Denies cough, hemoptysis or shortness of breath. Gastrointestinal: Denies nausea, vomiting, diarrhea, hematemesis or melena. Genitourinary: Denies hematuria, frequency or dysuria. Neurologic: Denies convulsive disorders, no focal weakness, no ataxia. Psych: Denies anxiety or depression Skin: No rash. Hematological system: Denies bleeding, no petechia. Musculoskeletal: No significant deformity or swelling of the joints. Past medical history: Hypertension, diabetes mellitus type 2, hyperlipidemia, diverticulitis. Past surgical history: Colostomy on 12/2013 Family history: Family history of cardiac disorder-brother Family history of coronary artery disease-brother Family history of hypertension Only history of diabetes Social history: No substance abuse. Never smoker. Allergies: No known drug allergies Physical exam: Vital signs: Blood pressure: 150/87; HR: 70; RR: 20; O2 sat: 99% on room air; temperature: 97.8. Constitutional: He is oriented to person, place, and time. He appears well-developed. HEENT: Head: Normocephalic and atraumatic. PERRLA. Cardiovascular: Regular rhythm, no murmurs, no rubs, no gallops. Pulmonary/Chest: Clear bilaterally, no rales, no rhonchi. Abdominal: Soft, nontender, bowel sounds positive and normal. No distention, no guarding, no rebound. Musculoskeletal: Normal range of motion. Extremities: No edema, no clubbing. Neurological: He is alert and oriented to person, place, and time. No slurred speech, no focal weakness, no dysphagia no dysarthria no cranial nerve deficit, no facial weakness. Normal gait. No sensory deficit. Skin: Skin is warm and dry. Psychiatric: He has a normal mood and affect. Laboratory data: CT of the brain without contrast on 07/12/2019 reported 1. No acute intracranial hemorrhage or CT evidence of acute territorial cortical infarct. 2. Age indeterminate likely chronic small lacunar infarcts as detailed above. 3. Mild white matter chronic microvascular ischemic changes. Chest x-ray on 07/12/2019 and 07/13/2019: No acute cardiopulmonary disease reported. Assessment: Cerebral infarction, unspecified vrs TIA Diabetes mellitus type 2 Hypertension Hyperlipidemia Plan of care: Reconcile home medications Considering neurology consultation Telemetry Cardiac enzymes Neurocheks Glycemic control Blood pressure control Antiemetics Aspirin IV fluids Monitor potassium and replace as needed Carotid Doppler MRI of the brain without contrast VTE prophylaxis Repeat labs as needed
--- NOTE | 2019-07-13 13:35 | NUR ---
Transferred to MRI via wheelchair.
--- NOTE | 2019-07-13 15:00 | NUR ---
Called Dr. Lorenzo Hartmann regarding patient home medications. Per MD, okay to resume amlodipine 5mg by mouth daily, glimepiride 2mg by mouth twice daily, lisinopril 40mg by mouth daily, and famotidine 20mg by mouth daily. Orders read back and verified. Will enter as ordered.
--- NOTE | 2019-07-13 15:24 | Diagnostic Imaging Report ---
History: High blood pressure. Left-sided weakness. Altered mental. Comparison studies: CT head 07/12/2019 Technique: Sagittal T2; axial DWI, FLAIR, MPGR, T1, Coronal FLAIR. Intravenous contrast: None Findings: Scalp: Normal in signal . No masses . Bone marrow: Normal in signal intensity. Extra-axial: No masses, no fluid collections. Brain sulci: Mildly prominent. Ventricles: Normal in size . No hydrocephalus . Parenchyma: Scattered small T2/FLAIR hyperintensities of the periventricular and the white matter. Chronic lacunar infarcts at the bilateral jacky, left parietal zhou radiata, right putamen and bilateral medial thalami. Blooming artifact at the bilateral jacky and left posterior putamen secondary to hemosiderin staining. No masses, hemorrhage, acute or chronic vascular insults. Suprasellar region: No abnormalities. Craniocervical junction: No abnormalities. Patent foramen magnum. No Chiari one malformation. Vessels: Normal flow-voids in the arteries and sinuses. Trace of fluid in the left mastoid air cells. IMPRESSION: 1. No acute abnormalities. 2. Mild chronic microvascular ischemic changes of the white matter. 3. Chronic lacunar infarcts as described above. Signed by: DR Calvin Staples M.D. on 07/13/2019 3:20 PM
[2019-07-13 15:42] LABS: CREATINE KINASE MB 6.4 ng/mL (0-5.0)
[2019-07-13] MEDS ORDERED: AMLODIPINE BESYLATE 5 MG TAB PO ONE (15:45)
[2019-07-13] MEDS ORDERED: LISINOPRIL 20 MG TAB PO ONE (15:45)
[2019-07-13] MEDS: GLIMEPIRIDE 2 MG TAB PO SCH (17:18)
--- NOTE | 2019-07-13 19:00 | NUR ---
Bedside shift report given to night nurse. Patient resting at this time. Call light within reach.
--- NOTE | 2019-07-13 19:00 | NUR ---
RECEIVED THE PATIENT IN REPORT.LYEING IN THE BED.STABLE CONDITION.
[2019-07-13] MEDS: ATORVASTATIN 40 MG TAB PO SCH (20:34)
--- NOTE | 2019-07-13 21:32 | Consultation ---
DATE OF CONSULTATION: Neurology Consultation HISTORY OF PRESENT ILLNESS: Mr. Ferraro is a 53-year-old male with a history of hypertension and diabetes. He comes in with left hemiparesis, left sensory disturbance in the arm in the face and dysarthria. Onset was more than 8 hours prior to onset to arrival, so did not receive tPA as he is not a tPA candidate. The patient states his symptoms have largely resolved. He has had similar symptoms in the past. REVIEW OF SYSTEMS: Dysarthria and hemiparesis. Otherwise 14-point review of systems negative. PAST MEDICAL HISTORY: Hypertension, diverticulitis, hyperlipidemia, and diabetes mellitus type 2. SOCIAL HISTORY: No tobacco or alcohol. FAMILY HISTORY: Does have coronary artery disease and vascular disease in the parents and siblings. PHYSICAL EXAMINATION: VITAL SIGNS: On admission, temperature is 97.8, blood pressure 156/95, and pulse is 70. GENERAL: The patient currently is asymptomatic. HEENT: Extraocular muscles are intact. Alert and oriented x3, responsive. Pupils are clear. Vision is symmetric. Speech is clear and nondysarthric. There is no nuchal rigidity. CARDIOVASCULAR: Regular rate and rhythm. PULMONARY: Clear to auscultation. ABDOMEN: Soft and nontender. There is no ataxia on exam. EXTREMITIES: Strength is 5/5 in uppers and lowers. Reflexes are symmetric. NEUROLOGIC: Sensory is grossly intact in all four extremities in the face. Did not ambulate the patient. ASSESSMENT AND PLAN: The patient comes in with transient ischemic attack, risk factors include hypertension, hyperlipidemia, and diabetes. We are going to initiate therapy for all those, workup includes metabolic risk factors, lipid panel, A1c, TSH, B12, and folic acid levels. Imaging; we are going to get a carotid duplex which is pending. Brain CT which is completed at this time and currently shows a white matter disease as well as history of a small probable lacunar infarcts or white matter disease and small vessel disease. We are going to get an MRI of the brain. We are going to get a vascular imaging of the carotids, echocardiogram. The patient is on telemetry. Initiate aspirin and statin at this time. KENISHA SPENCER MD RR/MODL /[id number]
--- NOTE | 2019-07-13 21:45 | NUR ---
Assessment done.no resp.distress.no pain voiced.iv left forarm is patent.patient refused insulin.MD was aware of that.bed locked and in lowest position.phone and call light within reach.instructed to call for assistance as needed.
[2019-07-14 04:33] VITALS: BP 143/75
--- NOTE | 2019-07-14 07:00 | NUR ---
RECEIVED PATIENT RESTING IN BED NO S/S OF DISTRESS. BED LOW, WHEELS LOCKED, SIDE RAILS X2. CALL LIGHT IN REACH WILL CONTINUE TO MONITOR PATIENT.
--- NOTE | 2019-07-14 07:02 | NUR ---
Bed side shift report given to oncoming Rn.stable condition.
[2019-07-14] MEDS: INSULIN LISPRO 100 UNIT/1 ML 3ML VIAL SQ SCH ×4 (07:30→20:51)
[2019-07-14 08:03] VITALS: BP 142/85
--- NOTE | 2019-07-14 08:41 | NUR ---
07/14/2019 Subjective: Mr. Montana is a 53-year-old gentleman has been evaluated . Patient is doing fine in no distress Review of system: Constitutional: No fever, no chills. HEENT: Denies headache, no ear pain, no nosebleed, no sore throat. Cardiovascular: Denies chest pain, PND, swelling of the legs, palpitations or blackout spells. Respiratory: Denies cough, hemoptysis or shortness of breath. Gastrointestinal: Denies nausea, vomiting, diarrhea, hematemesis or melena. Genitourinary: Denies hematuria, frequency or dysuria. Neurologic: Denies convulsive disorders, no focal weakness, no ataxia. Psych: Denies anxiety or depression Skin: No rash. Hematological system: Denies bleeding, no petechia. Musculoskeletal: No significant deformity or swelling of the joints. Physical exam: Vital signs: Blood pressure: 143/75; HR: 61; RR: 20; O2 sat: 99% on room air; temperature: 97.8. Constitutional: He is oriented to person, place, and time. He appears well-developed. HEENT: Head: Normocephalic and atraumatic. PERRLA. Cardiovascular: Regular rhythm, no murmurs, no rubs, no gallops. Pulmonary/Chest: Clear bilaterally, no rales, no rhonchi. Abdominal: Soft, nontender, bowel sounds positive and normal. No distention, no guarding, no rebound. Musculoskeletal: Normal range of motion. Extremities: No edema, no clubbing. Neurological: He is alert and oriented to person, place, and time. No slurred speech, no focal weakness, no dysphagia no dysarthria no cranial nerve deficit, no facial weakness. Normal gait. No sensory deficit. Skin: Skin is warm and dry. Psychiatric: He has a normal mood and affect. Assessment: Cerebral infarction, unspecified vrs TIA Diabetes mellitus type 2 Hypertension Hyperlipidemia Hypopotassemia Plan of care: In view of stability, Proceed with discharge. CaROTID DOPPLER NEGATIVE MRI of brain,No new events
[2019-07-14 08:56] VITALS: BP 142/85
[2019-07-14] MEDS ORDERED: LISINOPRIL 20 MG TAB PO SCH (09:00)
[2019-07-14] MEDS ORDERED: ASPIRIN 325 MG TAB PO SCH (09:00)
[2019-07-14] MEDS ORDERED: AMLODIPINE BESYLATE 5 MG TAB PO SCH (09:00)
[2019-07-14] MEDS ORDERED: FAMOTIDINE 20 MG TAB PO SCH (09:00)
[2019-07-14] MEDS: GLIMEPIRIDE 2 MG TAB PO SCH ×2 (09:04→16:23)
[2019-07-14 11:16] VITALS: BP 158/93
[2019-07-14 15:06] LABS: ANION GAP 12.3 mmol/L (8-16); BLOOD UREA NITROGEN 16 mg/dL (7-26); BUN/CREATININE RATIO 17 (6-25); CALCIUM 9.2 mg/dL (8.4-10.2); CARBON DIOXIDE 28 mmol/L (22-29); CHLORIDE 101 mmol/L (98-107); CREATININE, SERUM 0.92 mg/dL (0.72-1.25); EST GLOMERULAR FILTRATION RATE > 60 ML/MIN (60-); GLUCOSE 143 mg/dL (74-118); POTASSIUM 3.3 mmol/L (3.5-5.1); SODIUM 138 mmol/L (136-145)
[2019-07-14 15:50] VITALS: BP 154/89
[2019-07-14 20:00] VITALS: BP 152/89
[2019-07-14] MEDS: ATORVASTATIN 40 MG TAB PO SCH (20:48)
--- NOTE | 2019-07-14 22:35 | NUR ---
Final diagnosis: TIA Diabetes mellitus type 2 Hypertension Hyperlipidemia Hypopotassemia Hospital course: 53 year-old male patient admitted under my service on 07/12/2019 and discharged on 07/14/2019. The patient was treated for the above conditions. The patient was place on telemetry, cardiac enzymes, neurochecks, glycemic control, blood pressure control, IV fluids, aspirin, VTE prophylaxis, antiemetics, potassium replacement. The patient was evaluated by cardiology pertaining the patient was suffering from transient ischemic attack and history of small probable lacunar infarct. Dr. Linares advised to perform a carotid duplex, which revealed plaque within the right internal carotid artery consistent with a mild 1-15% stenosis plaque within the left internal carotid artery consistent with a mild 1-15% stenosis, and the rest was normal. Brain MRI without contrast on 07/13/2019: 1. No acute abnormalities. 2. Mild chronic microvascular ischemic changes of the white matter. 3. Chronic lacunar infarcts. The patient was discharged in a stable condition and no neurological sequela Diet: Diabetic diet. Activities: As tolerated. Condition at the time of discharge: stable. Medications: Per reconciliation list Disposition: Follow-up with PCP.
[2019-07-14] MEDS ORDERED: LIPITOR20 MG PO (22:39)
[2019-07-14] MEDS ORDERED: LISINOPRIL10 MG PO (22:40)
[2019-07-14] MEDS ORDERED: ASPIR 8181 MG PO (22:50)
[2019-07-14] MEDS ORDERED: K DUR10 MEQ PO (23:07)
== END 2019-07-14 23:40 | disposition home or self-care (01) ==
LOC: ER 18:21 → ERHOLD 19:55 → MED/SURG 21:29
PROVIDERS: ADMIT Internal Medicine; ATTEND Internal Medicine
DX: G45.9 Transient cerebral ischemic attack, unspecified (principal); I10 Essential (primary) hypertension; E11.9 Type 2 diabetes mellitus without complications; E78.5 Hyperlipidemia, unspecified; K57.92 Diverticulitis of intestine, part unspecified, without perforation or abscess without bleeding; Z93.3 Colostomy status; Z83.3 Family history of diabetes mellitus; Z82.49 Family history of ischemic heart disease and other diseases of the circulatory system; E87.6 Hypokalemia; Z86.73 Personal history of transient ischemic attack (TIA), and cerebral infarction without residual deficits; Z79.82 Long term (current) use of aspirin; Z79.84 Long term (current) use of oral hypoglycemic drugs
CPT/HCPCS: 36415 ×3; 70450; 70551; 71045 ×2; 80048 ×2; 80053; 80061; 81001; 82550 ×2; 82553 ×2; 82607; 82746; 82948 ×3; 83036; 84443; 84484 ×2; 85025 ×2; 85610; 85730; 87635; 93005 ×2; 93306; 93880; 97139; 99284; G0378 ×3; J7030

== ENCOUNTER 2020-01-19 17:18 | Inpatient (IN) | payer SELFPAY ==
[~2020-01-19] VITALS: Ht 162.6 cm; Wt 77.6 kg
[~2020-01-19 17:18] MED LIST changes: +ASPIR 8181 MG PO; +K DUR10 MEQ PO; +LIPITOR20 MG PO
[2020-01-19 17:43] LABS: BASOPHILS # (AUTO) 0.1 (0.0-0.1); BASOPHILS % 0.5 % (0.0-1.0); EOSINOPHILS # (AUTO) 0.1 (0.0-0.4); EOSINOPHILS % 0.5 % (0.0-6.0); HEMATOCRIT 41.8 % (38.2-49.6); HEMOGLOBIN 15.1 g/dL (14.0-18.0); LYMPHOCYTES # (AUTO) 1.2 (1.0-3.2); LYMPHOCYTES % 12.8 % (18.0-39.1); MEAN CORPUSCULAR HEMOGLOBIN 30.7 pg (28-32); MEAN CORPUSCULAR HGB CONC 36.1 g/dL (31-35); MONOCYTES # (AUTO) 0.7 (0.2-0.8); MONOCYTES % 7.7 % (4.4-11.3); NEUTROPHILS # (AUTO) 7.2 (2.1-6.9); NEUTROPHILS % 78.2 % (38.7-80.0); PLATELET COUNT 212 x10e3/uL (140-360); RED BLOOD COUNT 4.92 x10e6/uL (4.3-5.7); RED CELL DISTRIBUTION WIDTH 11.5 % (11.7-14.4)
[2020-01-19 17:56] LABS: ALANINE AMINOTRANSFERASE 26 IU/L (0-55); ALBUMIN/GLOBULIN RATIO 1.2 (0.8-2.0); ALKALINE PHOSPHATASE 65 IU/L (40-150); ANION GAP 13.8 mmol/L (8-16); BLOOD UREA NITROGEN 8 mg/dL (7-26); BUN/CREATININE RATIO 9 (6-25); CALCIUM 8.8 mg/dL (8.4-10.2); CARBON DIOXIDE 26 mmol/L (22-29); CHLORIDE 98 mmol/L (98-107); CREATININE, SERUM 0.86 mg/dL (0.72-1.25); EST GLOMERULAR FILTRATION RATE > 60 ML/MIN (60-); GLUCOSE 184 mg/dL (74-118); SODIUM 135 mmol/L (136-145)
[2020-01-19 18:01] LABS: POTASSIUM 2.8 mmol/L (3.5-5.1)
[2020-01-19 18:03] LABS: INR 0.97; PROTHROMBIN TIME 13.4 seconds (11.9-14.5)
[2020-01-19] MEDS ORDERED: ASPIRIN 325 MG TAB PO ONE (18:30)
[2020-01-19] MEDS ORDERED: ASPIRIN 81 MG CHEW TAB PO ONE (19:15)
[2020-01-19] MEDS ORDERED: POTASSIUM CHLORIDE 10MEQ/100ML 100 ML IV ONE (19:30)
[2020-01-19] MEDS ORDERED: POTASSIUM CHLORIDE 10MEQ EA PO ONE (19:30)
[2020-01-19] MEDS ORDERED: SODIUM CHLORIDE 0.9% 500ML 500 ML ONE (20:19)
[2020-01-19 21:25] VITALS: BP 137/77
[2020-01-19 21:30] VITALS: BP 137/77
[2020-01-19 21:48] VITALS: BP 137/77
[2020-01-19] MEDS: ACETAMINOPHEN 325 MG TAB PO PRN (22:46)
[2020-01-19] MEDS: MELATONIN 5 MG TABLET PO PRN (23:31)
[2020-01-20] VITALS (9 sets, daily range): BP systolic 138–164; BP diastolic 70–88
[2020-01-20] MEDS ORDERED: IOPAMIDOL 370 MG/ML 200 ML INFUS..BTL INJ ONE (01:24)
[2020-01-20] MEDS ORDERED: SODIUM CHLORIDE 0.9% 100 ML ONE (01:24)
[2020-01-20] MEDS: ACETAMINOPHEN 325 MG TAB PO PRN (05:18)
[2020-01-20 05:51] LABS: BASOPHILS # (AUTO) 0.1 (0.0-0.1); BASOPHILS % 0.6 % (0.0-1.0); EOSINOPHILS # (AUTO) 0.1 (0.0-0.4); EOSINOPHILS % 1.4 % (0.0-6.0); HEMATOCRIT 43.2 % (38.2-49.6); LYMPHOCYTES # (AUTO) 1.6 (1.0-3.2); MEAN CORPUSCULAR HEMOGLOBIN 29.8 pg (28-32); MEAN CORPUSCULAR HGB CONC 34.7 g/dL (31-35); MEAN CORPUSCULAR VOLUME 85.9 fL (81-99); MONOCYTES # (AUTO) 0.7 (0.2-0.8); MONOCYTES % 8.5 % (4.4-11.3); NEUTROPHILS # (AUTO) 5.5 (2.1-6.9); NEUTROPHILS % 69.2 % (38.7-80.0); PLATELET COUNT 220 x10e3/uL (140-360); RED BLOOD COUNT 5.03 x10e6/uL (4.3-5.7); RED CELL DISTRIBUTION WIDTH 11.9 % (11.7-14.4)
[2020-01-20 06:18] LABS: ALANINE AMINOTRANSFERASE 26 IU/L (0-55); ALBUMIN 3.8 g/dL (3.5-5.0); ALBUMIN/GLOBULIN RATIO 1.1 (0.8-2.0); ALKALINE PHOSPHATASE 61 IU/L (40-150); ANION GAP 14.1 mmol/L (8-16); BLOOD UREA NITROGEN 8 mg/dL (7-26); BUN/CREATININE RATIO 10 (6-25); CALCIUM 8.7 mg/dL (8.4-10.2); CARBON DIOXIDE 27 mmol/L (22-29); CHLORIDE 103 mmol/L (98-107); CREATININE, SERUM 0.79 mg/dL (0.72-1.25); EST GLOMERULAR FILTRATION RATE > 60 ML/MIN (60-); GLUCOSE 155 mg/dL (74-118); POTASSIUM 3.1 mmol/L (3.5-5.1); SODIUM 141 mmol/L (136-145)
[2020-01-20 06:47] LABS: CREATINE KINASE MB 5.9 ng/mL (0-5.0)
[2020-01-20] MEDS ORDERED: ATORVASTATIN 20 MG TAB PO SCH (09:00)
[2020-01-20] MEDS: ASPIRIN 81 MG CHEW TAB PO SCH (09:10)
[2020-01-20] MEDS: LISINOPRIL 20 MG TAB PO SCH ×2 (09:11→16:01)
[2020-01-20] MEDS: GLIMEPIRIDE 2 MG TAB PO SCH ×2 (09:11→16:01)
[2020-01-20] MEDS: AMLODIPINE BESYLATE 5 MG TAB PO SCH (09:12)
[2020-01-20 11:02] LABS: CREATINE KINASE MB 4.2 ng/mL (0-5.0)
[2020-01-20] MEDS ORDERED: POTASSIUM CHLORIDE 20 MEQ TAB CR PO ONE (11:15)
[2020-01-20] MEDS: MELATONIN 5 MG TABLET PO PRN (21:13)
[2020-01-21] VITALS (8 sets, daily range): BP systolic 141–179; BP diastolic 68–95
[2020-01-21 05:00] LABS: BASOPHILS % 0.5 % (0.0-1.0); EOSINOPHILS # (AUTO) 0.2 (0.0-0.4); HEMATOCRIT 40.7 % (38.2-49.6); HEMOGLOBIN 14.3 g/dL (14.0-18.0); LYMPHOCYTES # (AUTO) 1.7 (1.0-3.2); LYMPHOCYTES % 21.3 % (18.0-39.1); MEAN CORPUSCULAR HEMOGLOBIN 30.2 pg (28-32); MEAN CORPUSCULAR HGB CONC 35.1 g/dL (31-35); MEAN CORPUSCULAR VOLUME 85.9 fL (81-99); MONOCYTES # (AUTO) 0.6 (0.2-0.8); MONOCYTES % 7.4 % (4.4-11.3); NEUTROPHILS # (AUTO) 5.5 (2.1-6.9); NEUTROPHILS % 68.5 % (38.7-80.0); PLATELET COUNT 199 x10e3/uL (140-360); RED BLOOD COUNT 4.74 x10e6/uL (4.3-5.7); RED CELL DISTRIBUTION WIDTH 11.8 % (11.7-14.4)
[2020-01-21 05:33] LABS: ALANINE AMINOTRANSFERASE 27 IU/L (0-55); ALBUMIN 3.5 g/dL (3.5-5.0); ALBUMIN/GLOBULIN RATIO 1.2 (0.8-2.0); ALKALINE PHOSPHATASE 57 IU/L (40-150); BLOOD UREA NITROGEN 12 mg/dL (7-26); BUN/CREATININE RATIO 16 (6-25); CALCIUM 8.4 mg/dL (8.4-10.2); CARBON DIOXIDE 28 mmol/L (22-29); CHLORIDE 104 mmol/L (98-107); CREATININE, SERUM 0.75 mg/dL (0.72-1.25); EST GLOMERULAR FILTRATION RATE > 60 ML/MIN (60-); GLUCOSE 139 mg/dL (74-118); SODIUM 140 mmol/L (136-145)
[2020-01-21] MEDS: GLIMEPIRIDE 2 MG TAB PO SCH ×2 (07:56→17:05)
[2020-01-21] MEDS: ASPIRIN 81 MG CHEW TAB PO SCH (07:56)
[2020-01-21] MEDS: CLOPIDOGREL BISULFATE 75 MG TAB PO SCH (07:57)
[2020-01-21] MEDS: ATORVASTATIN 40 MG TAB PO SCH (07:57)
[2020-01-21] MEDS: LISINOPRIL 20 MG TAB PO SCH ×2 (07:57→17:05)
[2020-01-21] MEDS: AMLODIPINE BESYLATE 5 MG TAB PO SCH (07:57)
[2020-01-21] MEDS ORDERED: POTASSIUM CHLORIDE 20 MEQ TAB CR PO ONE (10:45)
[2020-01-21] MEDS ORDERED: INFLUENZA VIRUS VAC SPLIT INJ 0.5 ML SYR IM ONE ×2 (11:00→17:00)
[2020-01-21] MEDS: MELATONIN 5 MG TABLET PO PRN (22:59)
[2020-01-21] MEDS ORDERED: POTASSIUM CHLORIDE 10MEQ EA PO ONE (23:15)
[2020-01-22] VITALS (8 sets, daily range): BP systolic 131–185; BP diastolic 86–99
[2020-01-22 06:04] LABS: ANION GAP 11.2 mmol/L (8-16); BLOOD UREA NITROGEN 15 mg/dL (7-26); BUN/CREATININE RATIO 18 (6-25); CARBON DIOXIDE 31 mmol/L (22-29); CHLORIDE 103 mmol/L (98-107); CREATININE, SERUM 0.84 mg/dL (0.72-1.25); EST GLOMERULAR FILTRATION RATE > 60 ML/MIN (60-); GLUCOSE 150 mg/dL (74-118); POTASSIUM 3.2 mmol/L (3.5-5.1); SODIUM 142 mmol/L (136-145)
[2020-01-22] MEDS: ATORVASTATIN 40 MG TAB PO SCH (08:34)
[2020-01-22] MEDS: ASPIRIN 81 MG CHEW TAB PO SCH (08:34)
[2020-01-22] MEDS: GLIMEPIRIDE 2 MG TAB PO SCH ×2 (08:34→16:54)
[2020-01-22] MEDS: LISINOPRIL 20 MG TAB PO SCH ×2 (08:34→16:54)
[2020-01-22] MEDS: AMLODIPINE BESYLATE 5 MG TAB PO SCH (08:34)
[2020-01-22] MEDS: CLOPIDOGREL BISULFATE 75 MG TAB PO SCH (08:34)
[2020-01-22] MEDS ORDERED: POTASSIUM CHLORIDE 20 MEQ TAB CR PO ONE (18:30)
[2020-01-22] MEDS: MELATONIN 5 MG TABLET PO PRN (20:06)
[2020-01-23 00:01] VITALS: BP 158/97
[2020-01-23 04:00] VITALS: BP 147/83
[2020-01-23 07:31] VITALS: BP 154/88
[2020-01-23] MEDS: AMLODIPINE BESYLATE 5 MG TAB PO SCH (08:26)
[2020-01-23] MEDS: ASPIRIN 81 MG CHEW TAB PO SCH (08:26)
[2020-01-23] MEDS: GLIMEPIRIDE 2 MG TAB PO SCH (08:26)
[2020-01-23] MEDS: LISINOPRIL 20 MG TAB PO SCH (08:26)
[2020-01-23] MEDS: CLOPIDOGREL BISULFATE 75 MG TAB PO SCH (08:26)
[2020-01-23] MEDS: ATORVASTATIN 40 MG TAB PO SCH (08:26)
[2020-01-23 08:54] VITALS: BP 154/88
[2020-01-23 11:02] VITALS: BP 161/86
== END 2020-01-23 14:00 | disposition home or self-care (01) | DRG 65 ==
LOC: ER 17:43 → ERHOLD 19:26 → MED/SURG 21:09
PROVIDERS: ADMIT Internal Medicine; ATTEND Internal Medicine
DX: I63.81 Other cerebral infarction due to occlusion or stenosis of small artery (principal); G81.91 Hemiplegia, unspecified affecting right dominant side; E11.9 Type 2 diabetes mellitus without complications; Z20.828 Contact with and (suspected) exposure to other viral communicable diseases; I10 Essential (primary) hypertension; E78.5 Hyperlipidemia, unspecified; Z86.73 Personal history of transient ischemic attack (TIA), and cerebral infarction without residual deficits
CPT/HCPCS: 36415; 70450; 70496; 80048; 80053; 80061; 82550; 82553; 83021; 83036; 83090; 83516; 84484; 85025; 85597; 85598; 85610; 85613; 85730; 85732; 86039; 86146; 86147; 86148; 86160; 86225; 86235; 86255; 86256; 86376; 86849; 93005; 97139; 99284; J3480; J7040; J7050; Q9967; U0002

== ENCOUNTER 2023-10-10 19:45 | Emergency (ER) | payer MEDICARE ==
[~2023-10-10] VITALS: Ht 162.6 cm; Wt 77.6 kg
[2023-10-10 20:16] VITALS: PULSE 67; RESP 18; TEMP 98.8; O2SAT 99
== END 2023-10-10 20:20 | disposition home or self-care (01) ==
LOC: ER 19:55
DX: I10 Essential (primary) hypertension (principal); E11.9 Type 2 diabetes mellitus without complications; E78.5 Hyperlipidemia, unspecified; Z87.19 Personal history of other diseases of the digestive system
CPT/HCPCS: 99282

== ENCOUNTER 2024-02-10 19:02 | Emergency (ER) | payer MEDICARE ==
[~2024-02-10] VITALS: Ht 162.6 cm; Wt 77.6 kg
[2024-02-10 19:16] VITALS: TEMP 97.9
[2024-02-10 19:28] LABS: BASOPHILS # (AUTO) 0.1 (0.0-0.1); BASOPHILS % 0.6 % (0.0-1.0); EOSINOPHILS # (AUTO) 0.1 (0.0-0.4); EOSINOPHILS % 1.2 % (0.0-6.0); HEMATOCRIT 44.5 % (38.2-49.6); HEMOGLOBIN 15.4 g/dL (14.0-18.0); LYMPHOCYTES # (AUTO) 2.3 (1.0-3.2); LYMPHOCYTES % 21.7 % (18.0-39.1); MEAN CORPUSCULAR HEMOGLOBIN 30.5 pg (28-32); MEAN CORPUSCULAR HGB CONC 34.6 g/dL (31-35); MEAN CORPUSCULAR VOLUME 88.1 fL (81-99); MONOCYTES # (AUTO) 0.7 (0.2-0.8); MONOCYTES % 6.4 % (4.4-11.3); NEUTROPHILS # (AUTO) 7.5 (2.1-6.9); NEUTROPHILS % 69.8 % (38.7-80.0); PLATELET COUNT 233 x10e3/uL (140-360); RED BLOOD COUNT 5.05 x10e6/uL (4.3-5.7)
[2024-02-10] MEDS: SODIUM CHLORIDE 0.9% 1000ML 2,000 ML IV STA (19:41)
[2024-02-10] MEDS ORDERED: SODIUM CHLORIDE 0.9% 1000ML 1,000 ML ONE (19:41)
[2024-02-10] MEDS: DIAZEPAM INJ 5 MG/ML 2 ML IV ONE (19:42)
[2024-02-10 19:47] LABS: ALBUMIN 4.1 g/dL (3.5-5.0); ALBUMIN/GLOBULIN RATIO 1.1 (0.8-2.0); ANION GAP 16.4 mmol/L (8-16); BILIRUBIN,TOTAL 1.5 mg/dL (0.2-1.2); CALCIUM 9.4 mg/dL (8.4-10.2); CREATININE, SERUM 1.3 mg/dL (0.72-1.25); TOTAL PROTEIN 7.7 g/dL (6.5-8.1)
[2024-02-10 19:49] LABS: POTASSIUM 3.4 mmol/L (3.5-5.1)
[2024-02-10 19:58] LABS: TROPONIN I 0.023 ng/mL (0-0.300)
[2024-02-10] MEDS ORDERED: ONDANSETRON ODT4 MG PO (20:30)
[2024-02-10] MEDS ORDERED: PROTONIX20 MG PO (20:30)
[2024-02-10 21:09] LABS: OPIATES SCREEN,URINE NEGATIVE (NEGATIVE)
[2024-02-10 21:10] LABS: AMPHETAMINES SCREEN,URINE NEGATIVE (NEGATIVE); BENZODIAZEPINES SCREEN,URINE NEGATIVE (NEGATIVE); CANNABINOIDS SCREEN,URINE NEGATIVE (NEGATIVE); COCAINE SCREEN,URINE NEGATIVE (NEGATIVE); METHADONE SCREEN, URINE NEGATIVE (NEGATIVE); PHENCYCLIDINE SCREEN,URINE NEGATIVE (NEGATIVE)
[2024-02-10 21:23] VITALS: PULSE 69; RESP 14; O2SAT 99
[2024-02-10] MEDS: FAMOTIDINE 20 MG/2 ML VIAL IV STA (21:23)
== END 2024-02-10 21:31 | disposition home or self-care (01) ==
LOC: ER 19:07
DX: F10.121 Alcohol abuse with intoxication delirium (principal); I10 Essential (primary) hypertension; E11.65 Type 2 diabetes mellitus with hyperglycemia; E78.5 Hyperlipidemia, unspecified; Z86.73 Personal history of transient ischemic attack (TIA), and cerebral infarction without residual deficits; Z87.19 Personal history of other diseases of the digestive system
CPT/HCPCS: 36415; 71045; 80053; 80307; 80320; 82550; 83690; 83880; 84484; 85025; 93005; 99283; J3360; J7030

== ENCOUNTER 2024-06-16 09:40 | Emergency (ER) | payer MEDICARE ==
[~2024-06-16] VITALS: Ht 162.6 cm; Wt 77.6 kg
[~2024-06-16 09:40] MED LIST changes: +ONDANSETRON ODT4 MG PO; +PROTONIX20 MG PO
[2024-06-16 09:46] VITALS: TEMP 98.4
[2024-06-16] MEDS: SODIUM CHLORIDE 0.9% 1000ML 1,000 ML IV STA (10:06)
[2024-06-16] MEDS: ONDANSETRON HCL INJ 2MG/ML 2ML 2 MG/ML VIAL IV STA (10:06)
[2024-06-16 10:09] LABS: BASOPHILS # (AUTO) 0.1 (0.0-0.1); BASOPHILS % 0.6 % (0.0-1.0); EOSINOPHILS # (AUTO) 0.1 (0.0-0.4); EOSINOPHILS % 0.6 % (0.0-6.0); HEMATOCRIT 41.4 % (38.2-49.6); HEMOGLOBIN 15.5 g/dL (14.0-18.0); LYMPHOCYTES # (AUTO) 1.3 (1.0-3.2); LYMPHOCYTES % 14.1 % (18.0-39.1); MEAN CORPUSCULAR HEMOGLOBIN 31.4 pg (28-32); MEAN CORPUSCULAR HGB CONC 37.4 g/dL (31-35); MEAN CORPUSCULAR VOLUME 83.8 fL (81-99); MONOCYTES # (AUTO) 0.6 (0.2-0.8); MONOCYTES % 6.8 % (4.4-11.3); NEUTROPHILS # (AUTO) 7.3 (2.1-6.9); NEUTROPHILS % 77.6 % (38.7-80.0); PLATELET COUNT 304 x10e3/uL (140-360); RED BLOOD COUNT 4.94 x10e6/uL (4.3-5.7); RED CELL DISTRIBUTION WIDTH 12.2 % (11.7-14.4); WHITE BLOOD COUNT 9.47 x10e3/uL (4.8-10.8)
[2024-06-16 10:26] LABS: INR 0.93
[2024-06-16 10:27] LABS: PARTIAL THROMBOPLASTIN TIME 30.4 seconds (23.8-35.5)
[2024-06-16 10:37] LABS: ALBUMIN 4.2 g/dL (3.5-5.0); ALBUMIN/GLOBULIN RATIO 1.2 (0.8-2.0); ANION GAP 19.6 mmol/L (8-16); BILIRUBIN,TOTAL 1.5 mg/dL (0.2-1.2); CALCIUM 9.4 mg/dL (8.4-10.2); CREATININE, SERUM 1.31 mg/dL (0.72-1.25); MAGNESIUM 1.9 MG/DL (1.3-2.1); POTASSIUM 3.6 mmol/L (3.5-5.1); TOTAL PROTEIN 7.6 g/dL (6.5-8.1)
[2024-06-16 10:44] LABS: TROPONIN I 0.039 ng/mL (0-0.300)
[2024-06-16] MEDS ORDERED: IOPAMIDOL 370 MG/ML 100 ML INFUS..BTL INJ ONE (10:47)
[2024-06-16 11:04] LABS: AMPHETAMINES SCREEN,URINE NEGATIVE (NEGATIVE); BENZODIAZEPINES SCREEN,URINE NEGATIVE (NEGATIVE); CANNABINOIDS SCREEN,URINE NEGATIVE (NEGATIVE); COCAINE SCREEN,URINE NEGATIVE (NEGATIVE); METHADONE SCREEN, URINE NEGATIVE (NEGATIVE); OPIATES SCREEN,URINE NEGATIVE (NEGATIVE); PHENCYCLIDINE SCREEN,URINE NEGATIVE (NEGATIVE)
[2024-06-16 11:15] LABS: BACTERIA,URINE FEW /HPF; BILIRUBIN,URINE NEGATIVE (NEGATIVE); CLARITY,URINE CLOUDY (CLEAR); COLOR,URINE YELLOW (YELLOW); EPITHELIAL CELLS,URINE FEW /LPF; GLUCOSE, URINE 1+ (NEGATIVE); KETONES,URINE NEGATIVE (NEGATIVE); LEUKOCYTE ESTERASE ,URINE NEGATIVE (NEGATIVE); NITRITE,URINE NEGATIVE (NEGATIVE); PH,URINE 7 (5 - 7); PROTEIN,URINE DIPSTICK 2+ (NEGATIVE); RBC,URINE 0-5 /HPF (0-5); URINE UROBILINOGEN 0.2 mg/dL (0.2 - 1); WBC,URINE (MAN) 0-5 /HPF (0-5)
[2024-06-16 12:54] VITALS: PULSE 68; RESP 18; O2SAT 96
== END 2024-06-16 13:48 | disposition home or self-care (01) ==
LOC: ER 09:46
DX: F10.10 Alcohol abuse, uncomplicated (principal); F10.129 Alcohol abuse with intoxication, unspecified; R11.2 Nausea with vomiting, unspecified; I10 Essential (primary) hypertension; E11.65 Type 2 diabetes mellitus with hyperglycemia; E78.5 Hyperlipidemia, unspecified; Z86.73 Personal history of transient ischemic attack (TIA), and cerebral infarction without residual deficits; Z87.19 Personal history of other diseases of the digestive system
CPT/HCPCS: 36415; 70450; 72125; 74177; 80053; 80307; 80320; 81001; 83735; 84484; 85025; 85610; 85730; 93005; 99284; J2405; J2470; J7030; Q9967

== ENCOUNTER 2024-08-31 03:27 | Inpatient (IN) | payer MEDICARE ==
[2024-08-31] VITALS (9 sets, daily range): BP systolic 132–158; BP diastolic 75–84; PULSE 60–72; RESP 16–20; TEMP 98–98.7; O2SAT 98–100
[~2024-08-31] VITALS: Ht 152.4 cm; Wt 69.9 kg
[2024-08-31] MEDS: SODIUM CHLORIDE 0.9% 1000ML 1,000 ML IV STA (03:53)
[2024-08-31] MEDS: ONDANSETRON HCL INJ 2MG/ML 2ML 2 MG/ML VIAL IV STA (03:54)
[2024-08-31 03:59] LABS: BASOPHILS # (AUTO) 0.1 (0.0-0.1); BASOPHILS % 0.5 % (0.0-1.0); EOSINOPHILS # (AUTO) 0.2 (0.0-0.4); HEMATOCRIT 39.7 % (38.2-49.6); HEMOGLOBIN 14.4 g/dL (14.0-18.0); LYMPHOCYTES % 21.1 % (18.0-39.1); MEAN CORPUSCULAR HEMOGLOBIN 31.1 pg (28-32); MEAN CORPUSCULAR HGB CONC 36.3 g/dL (31-35); MEAN CORPUSCULAR VOLUME 85.7 fL (81-99); MONOCYTES # (AUTO) 0.7 (0.2-0.8); MONOCYTES % 6.9 % (4.4-11.3); NEUTROPHILS # (AUTO) 6.5 (2.1-6.9); NEUTROPHILS % 69.2 % (38.7-80.0); PLATELET COUNT 221 x10e3/uL (140-360); RED BLOOD COUNT 4.63 x10e6/uL (4.3-5.7); RED CELL DISTRIBUTION WIDTH 12.1 % (11.7-14.4); WHITE BLOOD COUNT 9.43 x10e3/uL (4.8-10.8)
[2024-08-31 04:20] LABS: ALBUMIN 4.1 g/dL (3.5-5.0); ALBUMIN/GLOBULIN RATIO 1.1 (0.8-2.0); BILIRUBIN,TOTAL 2.2 mg/dL (0.2-1.2); CALCIUM 9.5 mg/dL (8.4-10.2); CREATININE, SERUM 0.98 mg/dL (0.72-1.25); TOTAL PROTEIN 7.8 g/dL (6.5-8.1)
[2024-08-31 04:26] LABS: TROPONIN I 0.038 ng/mL (0-0.300)
[2024-08-31] MEDS ORDERED: Morphine 4mg INJECTION 4 MG/ML INJ IV PRN (04:45)
[2024-08-31] MEDS ORDERED: ONDANSETRON HCL INJ 2MG/ML 2ML 2 MG/ML VIAL IV PRN (04:45)
[2024-08-31 04:51] LABS: CLARITY,URINE CLEAR (CLEAR); COLOR,URINE YELLOW (YELLOW); GLUCOSE, URINE NEGATIVE (NEGATIVE); KETONES,URINE NEGATIVE (NEGATIVE); LEUKOCYTE ESTERASE ,URINE NEGATIVE (NEGATIVE); NITRITE,URINE NEGATIVE (NEGATIVE); PH,URINE 7.5 (5 - 7); PROTEIN,URINE DIPSTICK 2+ (NEGATIVE); URINE UROBILINOGEN 0.2 mg/dL (0.2 - 1)
[2024-08-31 04:52] LABS: BILIRUBIN,URINE NEGATIVE (NEGATIVE)
[2024-08-31 05:04] LABS: BACTERIA,URINE FEW /HPF; EPITHELIAL CELLS,URINE FEW /LPF; RBC,URINE 0-5 /HPF (0-5); WBC,URINE (MAN) 0-5 /HPF (0-5)
[2024-08-31] MEDS ORDERED: IOPAMIDOL 370 MG/ML 100 ML INFUS..BTL INJ ONE (06:29)
[2024-08-31] MEDS: SODIUM CHLORIDE 0.9% 1000ML 1,000 ML IV SCH (06:40)
[2024-08-31] MEDS ORDERED: LORAZEPAM INJ 2 MG/ML VIAL IV PRN (09:00)
[2024-08-31] MEDS: POTASSIUM CHLORIDE 20 MEQ TAB CR PO STA (09:49)
[2024-08-31] MEDS: MULTIVITAMINS- 12 INJECTION 10 ML, FOLIC ACID MDV 1 MG, THIAMINE HCL INJ 100 MG in SODI... IV ONE (10:14)
[2024-08-31] MEDS ORDERED: HYDRALAZINE HCL 20 MG/ML VIAL IV PRN (19:15)
[2024-08-31] MEDS: ENOXAPARIN SOD INJ 40 MG/0.4 ML SYR SC SCH (19:50)
[2024-09-01 01:52] VITALS: BP 137/78; PULSE 65; RESP 18; TEMP 98.1; O2SAT 99
[2024-09-01 06:03] VITALS: BP 142/91; PULSE 63; RESP 18; TEMP 98.1; O2SAT 100
[2024-09-01 06:04] LABS: BASOPHILS # (AUTO) 0.1 (0.0-0.1); BASOPHILS % 0.7 % (0.0-1.0); EOSINOPHILS # (AUTO) 0.2 (0.0-0.4); EOSINOPHILS % 2.3 % (0.0-6.0); HEMATOCRIT 37.2 % (38.2-49.6); LYMPHOCYTES # (AUTO) 1.5 (1.0-3.2); LYMPHOCYTES % 19.5 % (18.0-39.1); MEAN CORPUSCULAR HEMOGLOBIN 31.2 pg (28-32); MEAN CORPUSCULAR HGB CONC 34.9 g/dL (31-35); MEAN CORPUSCULAR VOLUME 89.2 fL (81-99); MONOCYTES # (AUTO) 0.5 (0.2-0.8); MONOCYTES % 7.2 % (4.4-11.3); NEUTROPHILS # (AUTO) 5.3 (2.1-6.9); PLATELET COUNT 174 x10e3/uL (140-360); RED BLOOD COUNT 4.17 x10e6/uL (4.3-5.7); RED CELL DISTRIBUTION WIDTH 12.2 % (11.7-14.4)
[2024-09-01 06:42] LABS: ALBUMIN 3.4 g/dL (3.5-5.0); ALBUMIN/GLOBULIN RATIO 1.1 (0.8-2.0); ANION GAP 16.7 mmol/L (8-16); BILIRUBIN,TOTAL 2.5 mg/dL (0.2-1.2); CALCIUM 8.3 mg/dL (8.4-10.2); CREATININE, SERUM 0.82 mg/dL (0.72-1.25); TOTAL PROTEIN 6.6 g/dL (6.5-8.1)
[2024-09-01 06:47] LABS: POTASSIUM 2.7 mmol/L (3.5-5.1)
[2024-09-01 08:00] VITALS: BP 143/78; PULSE 65; RESP 18; TEMP 98.3; O2SAT 99
[2024-09-01 09:30] VITALS: BP 143/78; PULSE 65; RESP 18; TEMP 98.3; O2SAT 99
[2024-09-01] MEDS: POTASSIUM CHLORIDE 10MEQ EA PO ONE (10:16)
[2024-09-01 12:00] VITALS: BP 143/83; PULSE 64; RESP 18; TEMP 98.1; O2SAT 100
[2024-09-01] MEDS ORDERED: DEXTROSE 50% SYRINGE 50 ML IV PRN (12:15)
[2024-09-01] MEDS: POTASSIUM CHLORIDE 20 MEQ TAB CR PO ONE (12:45)
[2024-09-01] MEDS: INSULIN LISPRO 100 UNIT/1 ML 3ML VIAL SQ SCH (12:46)
[2024-09-01 16:00] VITALS: BP 157/86; PULSE 79; RESP 18; TEMP 97.8; O2SAT 99
== END 2024-09-01 20:20 | disposition home or self-care (01) | DRG 439 ==
LOC: ER 03:40 → ERHOLD 04:33 → MED/SURG3 05:38
PROVIDERS: ADMIT Internal Medicine; ATTEND Internal Medicine
DX: K85.90 Acute pancreatitis without necrosis or infection, unspecified (principal); F19.20 Other psychoactive substance dependence, uncomplicated; K56.609 Unspecified intestinal obstruction, unspecified as to partial versus complete obstruction; I10 Essential (primary) hypertension; E11.9 Type 2 diabetes mellitus without complications; E78.5 Hyperlipidemia, unspecified; K76.0 Fatty (change of) liver, not elsewhere classified; F10.20 Alcohol dependence, uncomplicated; Z86.73 Personal history of transient ischemic attack (TIA), and cerebral infarction without residual deficits; Z90.49 Acquired absence of other specified parts of digestive tract; Z87.891 Personal history of nicotine dependence; Z79.82 Long term (current) use of aspirin; Z79.84 Long term (current) use of oral hypoglycemic drugs
CPT/HCPCS: 36415; 74177; 80053; 80320; 81001; 82550; 82948; 83690; 84484; 85025; 99284; J1650; J2405; J3411; J7030; Q9967